=== PATIENT | female | born 1980 | race Asian ===

== ENCOUNTER 2020-06-21 22:52 | Emergency (ER) | payer OTHER ==
[~2020-06-21] VITALS: Ht 154.9 cm; Wt 60.8 kg
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
--- NOTE | 2020-06-21 23:07 | NUR ---
Dr Angeles at Room 5A for MSE.
[2020-06-21] MEDS ORDERED: ONDANSETRON HCL 4 MG TABLET ONE (23:30)
[2020-06-21] MEDS ORDERED: HYDROCODONE/APAP 5-325MG TABLET ONE (23:30)
[2020-06-21] MEDS: ONDANSETRON ODT 4 MG TAB.RAPDIS SL ONE (23:34)
[2020-06-21] MEDS: HYDROCODONE/APAP 5-325MG TABLET PO ONE (23:34)
--- NOTE | 2020-06-21 23:35 | NUR ---
Pt refused HCG test, HCG waiver form signed that she is not and will undergo Xrays, as ordered. non destructive evaluation technician is at bedside. Pt also agreed with MD to take [place] for pain, aware that hydrocodone has similarity with codeine.
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
[2020-06-22 00:15] VITALS: BP 133/96
--- NOTE | 2020-06-22 00:35 | NUR ---
Patient assisted out of ER via standby assist, as requested vs wheelchair. Picked up by significant other. Left in stable condition.
== END 2020-06-22 00:35 | disposition home or self-care (01) ==
LOC: ER 22:55
DX: S29.012A Strain of muscle and tendon of back wall of thorax, initial encounter (principal); S39.012A Strain of muscle, fascia and tendon of lower back, initial encounter; V43.52XA Car driver injured in collision with other type car in traffic accident, initial encounter; Y92.414 Local residential or business street as the place of occurrence of the external cause; R03.0 Elevated blood-pressure reading, without diagnosis of hypertension
CPT/HCPCS: 72072; 72110; A4663; Q0162